=== PATIENT | male | born 1980 | race Two or more races ===

== ENCOUNTER → 2017-06-25 | Outpatient (CLI) | payer SELFPAY ==
--- NOTE | 2017-06-25 08:58 | REP ---
Clinical: Shortness of breath and cough for 3 weeks . Comparison: None . Technique: PA and lateral. Findings: The mediastinum and cardiac silhouette are normal. The lung are clear and without acute consolidation, effusion, or pneumothorax. The skeletal structures are intact and normal. Impression: 1. No acute cardiopulmonary process. If the patient remains symptomatic consider chest CT for further investigation. Signed by Sg Brito MD 06/25/2017 08:50 A
== END ==
LOC: M ADAMS 08:19
PROVIDERS: ATTEND Physician Assistant
DX: R06.02 Shortness of breath (principal)